=== PATIENT | male | born 1950 | race Caucasian/White ===

== ENCOUNTER 2020-01-29 10:49 | Inpatient (IN) | payer MEDICARE, MEDICAID ==
[~2020-01-29] VITALS: Ht 182.9 cm; Wt 62.6 kg
[2020-01-29 10:49] VITALS: BP 109/77
[~2020-01-29 10:49] MED LIST: AMANTADINE100 M1 PO; AMLODIPINE BESY10 MG PO; ARTIFICIAL TEAR15 M6 OP; ASPIR 8181 MG PER TUBE; BACITRACIN 500U30 G1 OPHTHALMIC; BENZTROPINE MES1 MG PER TUBE; CHLORPROMAZINE50 M2 PER TUBE; HYDRALAZINE 2525 MG PO; LANTUS SUBQ; LIPITOR10 MG PO; LUMIGAN2.5 M1 OP; MINOCYCLINE HC100 M2 PO; ONDANSETRON HCL4 M2 PER TUBE; TIMOLOL MA0.5 %/5 M2 OPHTHALMIC; TYLENOL325 MG PO; VALTREX 500 MG500 M1 PER TUBE; XALATAN2.5 ML OPHTHALMIC; ZOLOFT25 MG PO
[2020-01-29 11:25] LABS: ABSOLUTE EOSINOPHILS 0.1 thou/uL (0.0-0.7); ABSOLUTE LYMPHOCYTES 1.3 thou/uL (0.8-5.3); ABSOLUTE MONOCYTES 0.5 thou/uL (0.0-1.2); ABSOLUTE NEUTROPHILS 3.4 thou/uL (1.6-8.1); BASOPHILS 0.6 %; HEMATOCRIT 38.7 % (42.0-52.0); HEMOGLOBIN 13.4 gm/dL (14.0-18.0); LYMPHOCYTES 24.7 %; MCHC 34.5 g/dL (28.0-37.0); MCV 89.6 fL (80.0-100.0); MONOCYTES 8.6 %; MPV 7.9 fl. (7.2-11.1); NUCLEATED RBCS 0 /100WBC; PLATELET COUNT* 186 thou/uL (150-400); POLYS 64.1 %; RBC 4.32 mil/uL (4.50-6.00); RDW-CV 13.1 % (10.5-14.5); WBC 5.3 thou/uL (4.0-11.0)
[2020-01-29 11:33] LABS: CALCIUM 8.5 mg/dL (8.5-10.1); CREATININE 1.2 mg/dL (0.6-1.3); POTASSIUM 3.7 mmol/L (3.5-5.1)
[2020-01-29 11:34] LABS: INR 1.1; PROTIME 11.1 Seconds (9.20-11.50)
[2020-01-29 11:44] LABS: TOTAL BILIRUBIN 0.5 mg/dL (<0.1-1.0); TOTAL PROTEIN 6.9 g/dL (6.4-8.2)
--- NOTE | 2020-01-29 13:51 | NUR ---
NITRO PASTE WAS PLACED BY EMS. REMOVED PER DR. AIKEN REQUEST
[2020-01-29] MEDS ORDERED: MYSOLINE50 MG PO (13:55)
[2020-01-29] MEDS ORDERED: SEROQUEL 25 MG25 M1 PO (13:56)
[2020-01-29] MEDS ORDERED: DESYREL150 MG PO (13:56)
[2020-01-29] MEDS ORDERED: LORAZEPAM 0.50.5 MG PO (13:57)
[2020-01-29] MEDS ORDERED: AVASTIN25 MG/1 ML IV (13:58)
[2020-01-29] MEDS ORDERED: MIRALAX119 GM PO (13:59)
[2020-01-29] MEDS ORDERED: ARTIFICIAL TEAR1510 OPHTHALMIC (13:59)
[2020-01-29] MEDS ORDERED: KEFLEX500 M2 PO (13:59)
[2020-01-29] MEDS ORDERED: PROBIOTIC GOLD1 EACH PO (13:59)
[2020-01-29 14:44] LABS: URINE BILIRUBIN NEGATIVE (Negative); URINE BLOOD NEGATIVE (Negative); URINE CLARITY CLEAR; URINE COLOR YELLOW; URINE GLUCOSE-RANDOM NEGATIVE (Negative); URINE KETONES NEGATIVE (Negative); URINE LEUKOCYTES-REFLEX NEGATIVE (Negative); URINE NITRITE-REFLEX NEGATIVE (Negative); URINE PROTEIN TRACE (Negative); URINE SPECIFIC GRAVITY 1.025 (1.005-1.030); URINE UROBILINOGEN 0.2 E.U./dl (0.2-1.0)
[2020-01-29 14:45] VITALS: BP 121/81
--- NOTE | 2020-01-29 15:30 | NUR ---
ER ADMIT TO ROOM 212 VIA CART. ADMISSION ASSESSEMNT COMPLETE, DEFER TO COMPUTER CHARTING. TRUCK TERMINAL MANAGER TRACKING ST. ALERT ORIENTED TO SELF AND SITUATION. DENIES CHEST PAIN AT THIS TIME. PATIENT HAVING TREMORS IN ARMS, HANDS - STIFF, INCONTINENT OF URINE - TRACY CARE GIVEN. PATIENT HAVING TREMORS WITH HANDS AGAINST CHEST MAKING IT DIFFICULT TO READ MONITOR AT TIMES. ANXIOUS, REASSURANCE GIVEN. CONFUSED AT TIMES. PSYCH CONSULT PLACED PER ORDERS - SISTER WHOM IS DPOA CALLING STATING SHE NEEDS TO BE PRESENT DURING THIS CONSULT DUE PATIENT NOT BEING ABLE TO EXPRESS CONCERNS/NEEDS. ORIENTED TO ROOM/CALL LIGHT AND PLAN OF CARE. WILL MONITOR.
[2020-01-29 15:45] VITALS: BP 134/87
[2020-01-29] MEDS ORDERED: AMANTADINE100 M1 PO (17:16)
--- NOTE | 2020-01-29 17:49 | NUR ---
NURSE REVIEWING PATIENT HOME MEDICATION LIST IN CHART - FROM SHELTER AND FAMILY, MEDICATION LIST NOT MATCHING - MED LIST PROVIDED FROM FACILITY APPEARS TO BE OLD LIST. CALL PLACED TO [facility] REQUESTED CURRENT MEDICATION LIST TO BE FAXED. AWAITING UPDATED MED LIST. CALL PLACED TO DR NEWMAN TO NOTIFY. PATIENT ANXIOUS AND CALLING OUT REQUESTING MEDICATION FOR HIS ANXIETY.
--- NOTE | 2020-01-29 17:54 | NUR ---
SPOKE WITH DAUGHTER REGARDING PATIENT DIET, REPORTS PATINET HAVING DECREASE DIETARY INTAKE AND DIFFICULTY SWALLOWING AT TIMES. PATIENT ON PUREED DIET, FEEDER - TOLERATING DIET W/O DIFFICULTY SWALLOWING BUT NEEDING CUEING AND TIME TO SWALLOW AT THIS TIME.
[2020-01-29 20:00] VITALS: BP 127/78
--- NOTE | 2020-01-29 20:00 | NUR ---
RECEIVED REPORT AND ASSUMED CARE OF PT, ASSESSMENT COMPLETED. PT STIFF AND TREMORS. DIFFICULT IN HEARING HIS SPEECH BUT ABLE TO COMMUNICATE. TELEMETRY ON SHOWING SB WITH SHOWING ST DUE TO TREMORS. WILL CONT TO MONITOR AND ASSIST NEEDED.
[2020-01-30] VITALS: BP 121/70
[2020-01-30 04:00] VITALS: BP 123/83
--- NOTE | 2020-01-30 06:31 | NUR ---
ASSISTED WITH REPOSITIONING Q 2HR. TALKS IN LOW VOICE SO DIFFICULT HEARING PT. PT HAS CONSTANT TREMORS CAUSING PERIOPERATIVE ASSISTANT TO FALSELY SHOWING HR OF 200-260. APICAL 58-68. TAKING PO FLUIDS WITHOUT CHOKING OR COUGHING. PILLS CRUSHED IN APPLESAUCE. PT REFUSED HS INSULIN STATING HE WAS TOO LOW, 183 AND 158. HS GOALS ACHIEVED FOR REST AND SAFETY. HOURLY ROUNDING OBSERVED.
[2020-01-30 07:01] LABS: ABSOLUTE EOSINOPHILS 0.1 thou/uL (0.0-0.7); ABSOLUTE LYMPHOCYTES 1.5 thou/uL (0.8-5.3); ABSOLUTE MONOCYTES 0.4 thou/uL (0.0-1.2); ABSOLUTE NEUTROPHILS 2.7 thou/uL (1.6-8.1); BASOPHILS 0.6 %; HEMATOCRIT 37.7 % (42.0-52.0); LYMPHOCYTES 30.7 %; MCH 30.9 pg (26.0-34.0); MCHC 34.3 g/dL (28.0-37.0); MONOCYTES 9.4 %; MPV 8.1 fl. (7.2-11.1); NUCLEATED RBCS 0 /100WBC; PLATELET COUNT* 184 thou/uL (150-400); POLYS 56.3 %; RBC 4.19 mil/uL (4.50-6.00); RDW-CV 13.1 % (10.5-14.5); WBC 4.8 thou/uL (4.0-11.0)
[2020-01-30 07:14] LABS: CREATININE 1.6 mg/dL (0.6-1.3); POTASSIUM 3.7 mmol/L (3.5-5.1)
[2020-01-30 08:00] VITALS: BP 153/84
[2020-01-30 08:48] LABS: CHOLESTEROL 140 mg/dL (<200); HDL CHOLESTEROL 64 mg/dL (>40); LDL CHOLESTEROL 67 mg/dL (<100); TC:HDL 2.2 Ratio (Not establshd); TRIGLYCERIDE 45 mg/dL (<150); VLDL 9 mg/dL (<40)
[2020-01-30 08:49] LABS: SERUM ASSESSMENT Clear
--- NOTE | 2020-01-30 13:44 | NUR ---
CM spoke with Pt's sister via phone. Pt is a LTC resident at [facility], Pt has resided there for the past 4 years. Sister states that Pt shuffles when he ambulates, hx of falls, has a walker that he can use if needed, also has a wc. Pt hasn't been eating well resently, has been weak. Per sister, facility has been taking the time to feed Pt, sister questioning if she should locate another LTC facility. CM discussed that most LTC facilities will not have staff available to sit with the Pt for 45minutes plus, like the hospital ELECTRIC BRAIN WAVE EQUIPMENT MECHANIC does. Per sister, Pt is blind, delusional and insulin dependent. CM spoke with Veronika at [facility], they are requesting a covid test prior to Pt's return. Sister spoke with neuro and hospitalist, neuro to order additional tests. CM to f/u with sister tomorrow. Following.
--- NOTE | 2020-01-30 13:55 | NUR ---
ASSUMED PT CARE REPORT RECEIVED FROM NURSE, PT IS AOX4. ON 2 L NC. TRACING SR 1ST AV BLOCK ON CARIDAC MONITOR. HEART MONITOR WAS SHOWING A FAALSE FAST RYTHM EARLY IN THE AM. EKG WAS PERFORMED PER CARDIOLOGY ORDER. EKG PLACED IN CHART AND CARDIO WILDLIFE OFFICER MADE AWARE OF THE READING. PT IS ASYMPTOMATIC. OUT OF BED TO CHAIR WITH MAX ASSIST. PT IS A FEEDER. DENIES PAIN . CALL IGHT AT REACH. CHAIR ALARM ON . LUIS FERNANDO CONTINUE TO MONITOR
--- NOTE | 2020-01-30 15:41 | EKG ---
[place] [address] ELECTROCARDIOGRAM REPORT Name: RODRIGO JOSHI Room: [address] ADM IN M.R.#: [id number] Admission: 01/29/20 Attend Phys: Ryan Maurer, Discharge: Date of : 54 Date of Service: 01/29/20 1053 Report #: [id number] THIS REPORT FOR: //name// [facility] ED Test Date: 2020-01-29 Test Time: 10:53:39 Pat Name: RODRIGO JOSHI Department: Room: [facility] Gender: M Hair Spinning Machine Operator: DSPenny : 1950 Requested By: Rajwinder Geronimo Order Number: [id number] MD: Balbir Bagley Measurements Intervals [place] Rate: 76 P: 0 [place]: 50 QRS: 75 QRSD: 79 T: QT: 387 QTc: 436 Interpretive Statements Sinus rhythm Abnormal R-wave progression, early transition Artifact in lead(s) I,II,III,aVL,aVF,V1 Compared to ECG 10/25/2015 07:31:02 artifact is noted Electronically Signed On 01-30-2020 15:39:34 CDT by Balbir Bagley [email or web address] <ELECTRONICALLY SIGNED> By: Balbir Bagley MD, [facility] 01/30/20 1539 1053 1053 Balbir Bagley MD, [facility] /EPI
--- NOTE | 2020-01-30 15:42 | EKG ---
[place] [address] ELECTROCARDIOGRAM REPORT Name: RODRIGO JOSHI Room: [address] ADM IN M.R.#: [id number] Admission: 01/29/20 Attend Phys: Ryan Maurer, Discharge: Date of : 54 Date of Service: 01/29/20 1054 Report #: [id number] THIS REPORT FOR: //name// [facility] ED Test Date: 2020-01-29 Test Time: 10:54:41 Pat Name: RODRIGO JOSHI Department: Room: [address] Gender: M Textile Conversion Manager: DSPenny : 1950 Requested By: Rajwinder Geronimo Order Number: [id number] MD: Balbir Bagley Measurements Intervals [place] Rate: 75 P: 0 [place]: 73 QRS: 82 QRSD: 75 T: 156 QT: 394 QTc: 441 Interpretive Statements Sinus rhythm Possible right ventricular hypertrophy Artifact in lead(s) I,II,III,aVR,aVL,aVF,V1 Compared to ECG 10/25/2015 07:31:02 no significant change Electronically Signed On 01-30-2020 15:40:42 CDT by Balbir Bagley [email or web address] <ELECTRONICALLY SIGNED> By: Balbir Bagley MD, [facility] 01/30/20 1540 1054 1054 Balbir Bagley MD, [facility] /EPI
--- NOTE | 2020-01-30 15:51 | EKG ---
[place] [address] ELECTROCARDIOGRAM REPORT Name: RODRIGO JOSHI Room: [address] ADM IN M.R.#: [id number] Admission: 01/29/20 Attend Phys: Ryan Maurer, Discharge: Date of : 54 Date of Service: 01/30/20813 Report #: [id number] THIS REPORT FOR: //name// [facility] Test Date: 2020-01-30 Test Time: 08:14:43 Pat Name: RODRIGO JOSHI Department: Room: [address] Gender: M Electric Motor Repairer: SALAS : 1950 Requested By: Ryan Maurer Order Number: [id number] Reading MD: Balbir Bagley Measurements Intervals [place] Rate: 63 P: [place]: QRS: 64 QRSD: 131 T: 61 QT: 464 QTc: 476 Interpretive Statements Atrial fibrillation IVCD Minimal ST elevation, inferior leads Compared to ECG 10/25/2015 07:31:02 ST (T wave) deviation now present Sinus rhythm no longer present Electronically Signed On 01-30-2020 15:49:18 CDT by Balbir Bagley [email or web address] <ELECTRONICALLY SIGNED> By: Balbir Bagley MD, [facility] 01/30/20 1549 3 3 Balbir Bagley MD, [facility] /EPI
[2020-01-30 16:23] VITALS: BP 94/70
--- NOTE | 2020-01-30 18:26 | NUR ---
nasal swab for covid 19 testing sent to lab. pt back in bed. heart rate appears to be fast on heart monitor when pt is having sever tremors. no sob. pt denies palpitation. per nursing assessment pt's pulse is 62. pt fed dinner. no further complaint
[2020-01-30 20:00] VITALS: BP 104/65
[2020-01-31] VITALS (7 sets, daily range): BP systolic 82–160; BP diastolic 47–97
--- NOTE | 2020-01-31 05:59 | NUR ---
ASSUMED PT CARE AT 1915. NURSING ASSESSMENT COMPLETED AT START OF SHIFT. PT VOICED NO CONCERNS THIS SHIFT.SR ON TAILOR'S AIDE. HOURLY ROUNDING COMPLETED. PT UP TO BSC WITH MAX ASSIST. Q2H REPOSITIONING COMPLETED. CALL LIGHT WITHIN REACH. PT ABLE TO VOICE NEEDS.
[2020-01-31 07:48] LABS: ABSOLUTE EOSINOPHILS 0.1 thou/uL (0.0-0.7); ABSOLUTE LYMPHOCYTES 1.3 thou/uL (0.8-5.3); ABSOLUTE MONOCYTES 0.4 thou/uL (0.0-1.2); ABSOLUTE NEUTROPHILS 3.1 thou/uL (1.6-8.1); BASOPHILS 0.6 %; HEMATOCRIT 36.8 % (42.0-52.0); HEMOGLOBIN 12.8 gm/dL (14.0-18.0); LYMPHOCYTES 26.9 %; MCH 31.1 pg (26.0-34.0); MCHC 34.8 g/dL (28.0-37.0); MCV 89.3 fL (80.0-100.0); MPV 8.6 fl. (7.2-11.1); NUCLEATED RBCS 0 /100WBC; PLATELET COUNT* 173 thou/uL (150-400); POLYS 62.5 %; RBC 4.12 mil/uL (4.50-6.00); RDW-CV 13.3 % (10.5-14.5)
[2020-01-31 07:57] LABS: CALCIUM 8.6 mg/dL (8.5-10.1); CREATININE 1.5 mg/dL (0.6-1.3); POTASSIUM 3.7 mmol/L (3.5-5.1)
--- NOTE | 2020-01-31 12:57 | NUR ---
CM spoke with Pt's sister at bedside, continue to await neuro recs. CM provided sister with a list of neuropsychiatrists that accept Pt's insurance. JOSE FRANCISCO contacted [facility] to see if they have any LTC beds, both are full at this time. JOSE FRANCISCO spoke with Anna at [facility], they are able and expecting to take Pt back at mi. CM to update sister. Following.
--- NOTE | 2020-01-31 18:52 | NUR ---
PT IS AOX4. ON RA. O2 SATURATION IS 100% ON 2 LNC. PT PLACED ON RA. O2 SAT REMAINS ABOVE 95%. VSS. OUT OF BED WITH MAX ASSIST. PT WALKED IN HALLWAY WITH WALKER AND THIS NURSE'S ASSISTANCE. GROOMING DONE BY NURSE. TRACING SR ON ELECTRICAL SYSTEMS ENGINEER. CALL LIGHT AT REACH
[2020-02-01] VITALS: BP 90/60
[2020-02-01 03:54] VITALS: BP 129/77
--- NOTE | 2020-02-01 05:18 | NUR ---
ASSUMED PT CARE AT APPROX 1930. PT IS ASLEEP BUT IS AROUSABLE AND ABLE TO RESPOND TO SIMPLE QUESTIONS. ASSESSMENT DONE AND CHARTED. NO ACUTE CHANGES THROUGH THE NIGHT. POSITION CHANGES DONE. PT IS ABLE TO MAKE NEEDS KNOWN. WILL CONTINUE TO MONITOR PT.
[2020-02-01 08:00] VITALS: BP 118/90
--- NOTE | 2020-02-01 12:07 | NUR ---
Pt medically stable to dc, sister considering moving Pt to a different LTC facility, faxed referral to Peter at [facility] per sister's request. Awaiting decision to accept Pt to LTC today. Pt's prior LTC, [facility], is able and ready to accept Pt back to LTC. CM informed sister that Pt is medically stable to dc today.
[2020-02-01 12:26] VITALS: BP 112/66
--- NOTE | 2020-02-01 15:22 | NUR ---
Pt [facility], faxed dc orders.Chart copied.Sister will transport. Nurse report number is [id number]
[2020-02-01 15:43] VITALS: BP 112/66
[2020-02-01 15:44] VITALS: BP 112/66
--- NOTE | 2020-02-01 16:40 | NUR ---
ASSUMED PT CARE REPORT RECEIVED. PT IS AOX4. ON RA. TRACING SR ON FEED CRUSHER OPERATOR. VSS. DISCHARGE ORDERED. ELECTRICAL JOURNEYMAN WORKED ON PLACEMENT AND INFRASTRUCTURE DEVELOPER TIME. MEDS ADMISNITERED ORDERED. PT TO LEAVE AT [phone] PER INFRASTRUCTURE DEVELOPER SET UP. REPORT CALLED AT 1635 TO [facility]. DC INSTRUCTION GIVEN TO THE NURSE I TALKED TO. DC INSTRUCTION ALSO GIVEN TO PT AND FAMILY IN ROOM.
--- NOTE | 2020-02-01 18:04 | EEG ---
[address] [address] EEG STUDY REPORT Name: RODRIGO JOSHI Room: [address] IN M.R.#: [id number] Admission: 01/29/20 Attend Phys: Ryan Maurer MD Discharge: Date of : 54 Report #: [id number] THIS REPORT FOR: //name// CC: Ryan Maurer [facility] physician/PCP This patient is being evaluated for the possibility of seizure. EEG was done, but it is intermixed with a lot of tremor artifact. Background activity does go up to about 7-8 Hz and 10 microvolt. The patient goes to sleep that is associated with bilateral slowing and vertex sharp waves. Photic stimulation was unremarkable. IMPRESSION: A lot of tremor artifact is present. Although it is difficult to exclude seizure activity for sure, but the activity looks tremor artifact rather than seizure. Clinical correlation is recommended. <ELECTRONICALLY SIGNED> By: Simone Olivier MD 02/01/20 1804 0953 [id number] Olivier MD /nt
--- NOTE | 2020-02-01 18:04 | CON ---
[address] [address] CONSULTATION Name: RODRIGO JOSHI Room: [address] IN M.R.#: [id number] Admission: 01/29/20 Attend Phys: Ryan Maurer MD Discharge: Date of : 54 Report #: [id number] THIS REPORT FOR: //name// cc: MAX Harrell family physician/PCP MAX Harrell family physician/PCP ~ THIS REPORT FOR: //name// CC: Ryan Maurer FAM physician/PCP HISTORY OF PRESENT ILLNESS: This is a 69-year-old male patient who was seen and his records were reviewed. The patient appeared to be oriented, but his speech is so slurred. It is very difficult to examine and take his history. I called the patient's sister and she gave the history. This patient has a lifelong history of schizophrenia, which started in his 20s. He has been on multiple antipsychotic medications starting with Thorazine and that has caused him Parkinson's disease as well as tardive dyskinesia. There is a family history of Parkinson's disease also. He is admitted for the chest pain and for cardiac evaluation. His neurological problem is going on for long time. His psychiatric medication has been adjusted recently and he does not feel his psychological balance is very good. REVIEW OF SYSTEMS: Positive for Parkinson's disease. He may have seen a neurologist some time ago, but he has not seen one recently. He has seen a psychiatrist, but has not seen one recently. He has visual disturbances, which is his baseline. He has chest pain. He has a history of diabetes and amputation of the toe. That was his relevant 14-point review of system. PAST MEDICAL HISTORY: Positive for Parkinson's disease as described above. FAMILY HISTORY: Positive for Parkinson's disease. SOCIAL HISTORY: He lives in a snf. PHYSICAL EXAMINATION: The patient's speech is very slurred and very difficult to carry out the conversation because speech is virtually ununderstandable, but it does look like he can tell me the month, what the hospital he is in. Cranial nerve examination 2-12 was attempted and it is almost impossible to carry out. He has a pronounced tremor in all 4 extremities especially in both upper extremities. His sensation is difficult to tell. Reflexes does look diminished. No change in cardiac or respiratory status. Blood pressure is 153/84, pulse is 77, temperature is 97.9. LABORATORY DATA: Indicates a white count of 4.8. Blood sugar is 100 now, it was 241 when he came in. IMPRESSION: [address] [place] [address] CONSULTATION Name: RODRIGO JOSHI Room: [address] IN [facility]#: [id number] Admission: 01/29/20 Attend Phys: Ryan Maurer MD Discharge: Date of : 54 Report #: [id number] 1. Longstanding history of Parkinson's disease. 2. Schizophrenia with longstanding use of antipsychotics. RECOMMENDATIONS: 1. We will do an MRI because of recent alteration in mental status. 2. Management is going to be difficult, if we give him dopamine agonist he will start hallucinating and his Schizophrenia will become more worse. He needs some dopamine agonist to control his tremor. Surgeries and other option, but the patient is not a very good surgical candidate. I discussed all options with the family. I will suggest non-aggressive treatment, but going to a tertiary care center, see a movement disorder specialist and a psychiatrist at the same time and try to find a happy median between dopamine agonist and antagonist. I do not think we have adequate system here to do that. Time spent about 50 minutes, majority counseling and coordinating and this was all discussed with the patient's sister. <ELECTRONICALLY SIGNED> By: Simone Olivier MD 02/01/20 1804 1401 [id number] Olivier MD /nt
== END 2020-02-01 17:40 | DRG 391 ==
LOC: M.ERS 10:49 → M.2W 13:46 → M.TBA-ER 13:46 → M.ERS 14:45 → M.2W 14:58
PROVIDERS: Personal Emergency Response Attendant; Registered Nurse; ADMIT Internal Medicine; ATTEND Internal Medicine
DX: K21.9 Gastro-esophageal reflux disease without esophagitis (principal); G93.41 Metabolic encephalopathy; N17.0 Acute kidney failure with tubular necrosis; I25.119 Atherosclerotic heart disease of native coronary artery with unspecified angina pectoris; I10 Essential (primary) hypertension; F20.9 Schizophrenia, unspecified; H54.8 Legal blindness, as defined in USA; G51.0 Bell's palsy; E11.51 Type 2 diabetes mellitus with diabetic peripheral angiopathy without gangrene; G20 Parkinson's disease; Z79.4 Long term (current) use of insulin; Z79.899 Other long term (current) drug therapy; Z89.432 Acquired absence of left foot; Z03.818 Encounter for observation for suspected exposure to other biological agents ruled out; I25.2 Old myocardial infarction